=== PATIENT | male | born 2000 | race Caucasian/White ===

== ENCOUNTER 2020-12-10 14:04 | Emergency (ER) | payer SELFPAY ==
[2020-12-10] MEDS ORDERED: HYDROmorphone 1 MG/ML Syringe IM ONE (14:24)
--- NOTE | 2020-12-10 14:58 | CR ---
Left first toe: 4 view centered to the left first toe were obtained. Comparison: Fracture is seen involving the corner base of the distal phalanx with articular extension. Soft tissue swelling is noted. Fracture remains close to anatomic alignment. No additional osseous abnormality is appreciated. Impression: 1. Fracture as noted above. 2. Soft tissue swelling. Diagnostic code #3
--- NOTE | 2020-12-10 15:02 | EDM.PDOC ---
ED HPI GENERAL MEDICAL PROBLEM - General Chief Complaint: Lower Extremity Injury/Pain Stated Complaint: INJURED LEFT FOOT Time Seen by Provider: 12/10/20 14:21 Source of Information: Reports: Patient, RN Notes Reviewed History Limitations: Reports: No Limitations - History of Present Illness INITIAL COMMENTS - FREE TEXT/NARRATIVE: Patient is a 20-year-old male presenting to the emergency department for evaluation of injury to his right great toe. Reports that he was at work and dropped an object being approximately 15 pounds from height about 5 feet onto his toe. Complains of significant pain to the area. He also has a superficial laceration. He is up-to-date on his vaccinations. left foot Pain Score (Numeric/FACES): 7 - Related Data Allergies Allergy/AdvReac Type Severity Reaction Status Date / Time No Known Allergies Allergy Verified 12/10/20 14:17 Home Meds: Home Meds Hydrocodone/Acetaminophen [Hydrocodone-Acetamin 5-325 mg] 1 each PO Q4H PRN #12 tablet 12/10/20 [Rx] Past Medical History - Past Health History Medical/Surgical History: Denies Medical/Surgical History - Infectious Disease History Infectious Disease History: Reports: Novel Coronavirus Other Infectious Disease History: april 2020 Social & Family History - Tobacco Use Tobacco Use Status *Q: Current Every Day Tobacco User Years of Tobacco use: 7 Packs/Tins Daily: 0.3 - Recreational Drug Use Recreational Drug Use: No Review of Systems - Review of Systems Review Of Systems: Comprehensive ROS is negative, except as noted in HPI. ED EXAM, GENERAL - Physical Exam Exam: See Below General Appearance: Alert, WD/WN, No Apparent Distress Respiratory/Chest: No Respiratory Distress, Lungs Clear, Normal Breath Sounds, No Accessory Muscle Use, Chest Non-Tender Cardiovascular: Normal Peripheral Pulses, Regular Rate, Rhythm, No Edema, No Gallop, No JVD, No Murmur, No Rub Extremities: Other (1 cm superficial laceration to the dorsal aspect of the great toe. Generalized swelling. No obvious deformity.) Neurological: Alert, Oriented, CN II-XII Intact, Normal Cognition, Normal Gait, Normal Reflexes, No Motor/Sensory Deficits Psychiatric: Normal Affect, Normal Mood Course - Vital Signs Last Recorded V/S: Last Vital Signs Temp 98 F 12/10/20 14:14 Pulse 85 12/10/20 14:14 Resp 18 12/10/20 14:14 BP 137/84 12/10/20 14:14 Pulse Ox 97 12/10/20 14:14 - Orders/Labs/Meds Orders: Active Orders 24 hr Category Date Time Status Toes Great Toe Lt TA [CR] Stat Exams 12/10/20 14:25 Taken Meds: Medications Discontinued Medications Generic Name Dose Route Start Last Admin Trade Name Francine PRN Reason Stop Dose Admin Hydromorphone HCl 1 mg 12/10/20 14:24 12/10/20 14:37 Hydromorphone 1 Mg/Ml Syringe IM 12/10/20 14:25 1 mg ONETIME ONE Administration - Re-Assessments/Exams Free Text/Narrative Re-Assessment/Exam: Patient is a 20-year-old male presenting to the emergency department with complaints of pain and laceration to his right great toe after dropping approximately 15 pound object from about 5 feet onto his toe. On exam, he has a 1 cm superficial laceration to the dorsal aspect of the toe. There is generalized swelling. No obvious deformity. I have ordered Dilaudid 1 mg IM as well as x-rays of the great toe. 12/10/20 14:57 X-ray of the right great toe shows a corner fracture on the lateral aspect of the base of the distal phalanx. There is no displacement. Great toe was khloe taped to the second toe. Superficial laceration cleansed and covered with a Band-Aid. Recommend ice and elevation. I will send prescription for hydrocodone as needed for pain. Discharge instructions as documented. Departure - Departure Time of Disposition: 14:58 Disposition: Home, Self-Care 01 Condition: Good Clinical Impression: Toe fracture, left Qualifiers: Encounter type: initial encounter Toe: great toe Fracture type: closed Phalanx: distal Fracture alignment: nondisplaced Qualified Code(s): S92.425A - Nondisplaced fracture of distal phalanx of left great toe, initial encounter for closed fracture - Discharge Information *PRESCRIPTION DRUG MONITORING PROGRAM REVIEWED*: Yes *COPY OF PRESCRIPTION DRUG MONITORING REPORT IN PATIENT TENA: No Prescriptions: Hydrocodone/Acetaminophen [Hydrocodone-Acetamin 5-325 mg] 1 each PO Q4H PRN #12 tablet PRN Reason: Pain Instructions: Toe Fracture, [id number] Referrals: PCP,Not In Area [Primary Care Provider] - Additional Instructions: You were seen in the emergency department today for pain and swelling to your right big toe after dropping an object on it. X-rays were completed and show a nondisplaced corner fracture of your distal phalanx. Recommend washing the laceration to the top of the toe twice daily with normal soap and water. Cover with Band-Aid. Keep the 2 toes khloe taped together to stabilize the joint. Recommend ice and elevation for the next few days. Routine ibuprofen should be used per package directions. For pain not relieved by this, a prescription for hydrocodone with Tylenol has been provided. Do not work or drive for 12 hours after taking this medication as it can be sedating. Keep the toes khloe taped for approximately 3 weeks to allow for healing. Return to ER as needed. Sepsis Event Note (ED) - Evaluation Sepsis Screening Result: No Definite Risk - Focused Exam Vital Signs: Vital Signs Temp Pulse Resp BP Pulse Ox 12/10/20 14:14 98 F 85 18 137/84 97 - My Orders Last 24 Hours: My Active Orders 12/10/20 14:25 Toes Great Toe Lt TA [CR] Stat - Assessment/Plan Last 24 Hours: My Active Orders 12/10/20 14:25 Toes Great Toe Lt TA [CR] Stat
== END 2020-12-10 15:23 | disposition home or self-care (01) ==
LOC: JD.ED 14:04
DX: S92.425A Nondisplaced fracture of distal phalanx of left great toe, initial encounter for closed fracture (principal); Z86.16 Personal history of COVID-19; W20.8XXA Other cause of strike by thrown, projected or falling object, initial encounter
CPT/HCPCS: 73660; 96372; 99283; J1170